=== PATIENT | female | born 1950 | race Caucasian/White ===

== ENCOUNTER 2022-01-30 09:24 | Outpatient (CLI) | payer MEDICARE, OTHER, SELFPAY ==
[2022-01-30 11:53] LABS: Chloride* 104 mmol/L (96-114); Sodium* 141 mmol/L (135-149)
[2022-01-30 11:56] LABS: Blood Urea Nitrogen* 14 mg/dL (7-30); Carbon Dioxide* 31 mmol/L (20-32); Cholesterol* 197 mg/dL (90-199); Creatinine* 0.8 mg/dL (0.5-1.5); Estimated Glomerular Filt Rate 80 ml/min; Glucose* 94 mg/dL (60-115)
[2022-01-30 11:57] LABS: Calcium* 9.7 mg/dL (8.4-10.6); HDL Cholesterol* 54 mg/dL (>=50); LDL Cholesterol Calculated 117 mg/dL (<100); Triglycerides* 131 mg/dL (40-149)
[2022-01-30 12:12] LABS: Vitamin D 25 Hydroxy* 52 ng/mL (30-80)
== END 2022-01-30 09:25 | disposition home or self-care (01) ==
PROVIDERS: PCP Family Medicine; Visit Provider Family Medicine
DX: R94.4 Abnormal results of kidney function studies (principal); E78.5 Hyperlipidemia, unspecified; M81.0 Age-related osteoporosis without current pathological fracture; Z13.1 Encounter for screening for diabetes mellitus
CPT/HCPCS: 80048; 80061; 82306

== ENCOUNTER 2022-02-06 14:21 | Outpatient (CLI) | payer MEDICARE, OTHER, SELFPAY ==
--- NOTE | 2022-02-06 14:30 | CRLHL7_ITS ---
For Patients: As a result of the Century Cures Act, medical imaging exams and procedure reports are released immediately into your electronic medical record. You may view this report before your referring provider. If you have questions, please contact your health care provider. DXA BONE MINERAL DENSITY STUDY Current height (in): 67.0 Weight (lb): 150.0 Menopause age: 57 Ethnicity: White 1. Have you had a previous hip or vertebral fracture? No. 2. Have you had any fractures during your adult life which did not result from significant trauma (e.g., auto accident)? No. 3. Did either of your parents have a hip fracture? No. 4. Do you smoke? No. 5. Have you ever taken Glucocorticoids? No. 6. Do you have rheumatoid arthritis? No. 7. Do you have secondary osteoporosis? No. 8. Do you drink 3 or more alcoholic drinks per day? No. 9. Are you being treated for osteoporosis? No. 10. Have you ever taken any of the following medications: Actonel, Evista, Fosamax, Miacalcin, Reclast, Boniva, Forteo, HRT (i.e. estrogen/hormone therapy), Protelos, Prolia, Vitamin D, Calcium, other ??? please specify. ANSWER: Yes, Vitamin D, Calcium. 11. Do you have any of the following medical conditions: Anorexia or bulimia, asthma or emphysema, end stage renal disease, hyperparathyroidism, any seizure disorders, cancer, inflammatory bowel diseases, hysterectomy, other ??? please specify. ANSWER: No. 12. What was your maximum height (inches)? 67 13. Do you perform weight bearing exercise regularly? No. 14. Do you regularly consume dairy products? No. 15. Do you drink caffeinated beverages? Yes. 16. At what age did your period start? 17 17. Are you premenopausal? No. 18. How many full term pregnancies have you had? 1 19. Have you ever missed your period for more than 6 months in a row (not including or menopause)? No. TECHNIQUE: Bone mineral density study was performed using the [employer]. FINDINGS: The results of the study expressed as bone mineral density (BMD) are as follows: Lumbar spine L1 to L4: BMD: 0.625 g/cm2. T-score: -3.8. Z-score: -1.8. Neck Left: BMD: 0.629 g/cm2. T-score: -2.0. Z-score: -0.2. Right: BMD: 0.610 g/cm2. T-score: -2.2. Z-score: -0.4. Total Left: BMD: 0.775 g/cm2. T-score: -1.4. Z-score: 0.1. Right: BMD: 0.742 g/cm2. T-score: -1.6. Z-score: -0.2. IMPRESSION: Osteoporosis. *Comparison exams done prior to 10/2019 were performed on different unit, [facility]. COMPARISON: Compared with scan of 12/12/2020, the bone mineral density has decreased by 9.2 percent at the spine and decreased by 1.6 percent at the hip. Fernando Sheppard M.D. Diagnostic Radiologist [email or web address] RILEY/dave PT/Dictated by: Fernando Sheppard MD @ 02/06/2022 3:05:00 PM (Electronically Signed)
== END 2022-02-06 14:22 | disposition home or self-care (01) ==
LOC: RAD 14:24
PROVIDERS: PCP Family Medicine; Visit Provider Family Medicine
DX: M81.0 Age-related osteoporosis without current pathological fracture (principal)
CPT/HCPCS: 77080

== ENCOUNTER 2022-03-27 09:00 | Outpatient (RCR) | payer MEDICARE, OTHER, SELFPAY ==
--- NOTE | 2022-02-04 10:36 | SLP.EVAL ---
Dr. Jaeger Please review, sign and return Thank you Sri Springer, RN FIELD CASE MANAGER RN FIELD CASE MANAGER Abdulkadir RN FIELD CASE MANAGER Abdulkadir Start: 02/03/22 12:22 Freq: Status: Active Protocol: Document 02/03/22 16:43 HJAlison (Rec: 02/03/22 16:50 HJS [id number]) E-signed By Sri Springer, MALINA, RN FIELD CASE MANAGER RN FIELD CASE MANAGER System Review History & Reason For Referral Type of Speech Evaluation Communication Evaluation Rehabilitation Order Evaluation and Treat Date of Order 01/30/22 Reason for Referral Difficulty speaking Medical Diagnosis Degenerative disease of nervous system; Treatment Diagnosis Apraxia Hearing Information Hearing Status Normal for conversation. Vision Information Vision Status Wears glasses Patient Orientation Orientation & Mental Status Within normal limits. RN FIELD CASE MANAGER Initial Assessment/POC Subjective Information Subjective/Pain Comment Patient independently ambulated to the therapy room. She is pleasant and cooperative. Assessment & Impression Assessment/Impression Patient is a 71 year old female referred for a speech evaluation and treatment for apraxia of speech. She was diagnosed last year at [facility] with degenerative disease of nervous system, with progressive apraxia of speech. She reports there has been some decline since her diagnosis. She has never had any speech therapy for this. She reports that she avoids talking because of her symptoms. She will sometimes compensate by choosing different words. She can make most sounds in isolation or at the short word level but longer utterances and conversation are very difficult for her. There are no symptoms of apraxia in her walking or other motor functions, just speech. 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 Her language and cognitive ability are intact and within normal limits. She denies any swallowing difficulty. Her speech is characterized by irregular and slow AMR's (Alternating Motion Rates), with articulation distortions and inconsistent stress and prosody. She is able to produce sounds in isolation and single syllable words but exhibits difficulty with multi syllable words, sentences and in conversation. 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 Recommend direct speech therapy to teach methods and strategies to increase intelligibility and compensate when speech not understood. Patient in agreement with plan . Functional Limitations & Outcome/Goals Goals/Functional Outcomes [facility] GOAL Patient will increase use of strategies and device as needed to decrease communication breakdowns. SHORT TERM GOALS 1)Patient will be able to utilize strategies to increase speech intelligibility 90% of the time. 2)Patient will be able to use over articulation with commonly used phrases 90% of the time. Intervention Plan & Frequency Intervention Plan direct outpatient speech therapy Frequency 1x Per Week Duration 10+ Weeks Discharge Plan Patient Will be Discharged from Therapy Completion of LTG(s),Skills Plateau,Independently Progressing Therapist Signature & License # I Certify That Therapy Services Provided, Therapy Plan Established Therapist Signature & License Number Sri Springer, [facility]-RN FIELD CASE MANAGER,# [id number] Certification Date Date of First Visit for Therapy 02/03/22 Date of Last Visit to Physician 01/30/22 Recertification Due Date 05/03/22 Physician Signature Signature of Physician Indicates Treatment Plan,Certification Plan,Medically Needed Services Physician Signature & Date Required Please Sign/Date Here Speech/Language Pathology Billing Units Billing Units Eval Speech Sound Production 1
== END 2022-12-11 23:59 | disposition home or self-care (01) ==
PROVIDERS: PCP Family Medicine; Visit Provider Family Medicine
DX: R48.2 Apraxia (principal); G31.9 Degenerative disease of nervous system, unspecified; Z51.89 Encounter for other specified aftercare
CPT/HCPCS: 92507; 92522

== ENCOUNTER 2022-04-02 09:23 | Outpatient (CLI) | payer MEDICARE, OTHER, SELFPAY ==
--- NOTE | 2022-04-02 09:15 | CRLHL7_ITS ---
For Patients: As a result of the Century Cures Act, medical imaging exams and procedure reports are released immediately into your electronic medical record. You may view this report before your referring provider. If you have questions, please contact your health care provider. BILATERAL SCREENING MAMMOGRAM WITH COMPUTER-AIDED DETECTION AND TOMOSYNTHESIS TECHNIQUE: CC and MLO views were obtained. These mammographic images have been obtained using full-field digital technique. These mammographic images were interpreted with the benefit of computer-aided detection. Breast Tomosynthesis was used in this interpretation. COMPARISON FILM: 12/12/20, 10/20/17, 05/16/14. FINDINGS: There are scattered areas of fibroglandular density IMPRESSION: There is no radiographic evidence for malignancy. ASSESSMENT: BI-RADS Category 2: Benign RECOMMENDATION: Routine screening mammogram in 1 year. A lay language report of this examination will be provided to the patient. Willian Chadwick M.D. Diagnostic/Nuclear Medicine Radiologist [email or web address] IRINEO/Dictated by: Willian Chadwick MD @ 04/03/2022 8:07:00 AM (Electronically Signed)
== END 2022-04-02 09:24 | disposition home or self-care (01) ==
PROVIDERS: PCP Family Medicine; Visit Provider Family Medicine
DX: Z12.31 Encounter for screening mammogram for malignant neoplasm of breast (principal)
CPT/HCPCS: 77063; 77067

== ENCOUNTER 2023-03-06 08:26 | Outpatient (CLI) | payer MEDICARE, OTHER, SELFPAY | END 2023-03-06 08:27 | disposition home or self-care (01) | LOC: NFLDREF 03-09 21:25 | PROVIDERS: PCP Family Medicine; Referring Provider Family Medicine; Visit Provider Family Medicine | DX: E78.5 Hyperlipidemia, unspecified (principal); M81.0 Age-related osteoporosis without current pathological fracture; R03.0 Elevated blood-pressure reading, without diagnosis of hypertension | CPT/HCPCS: 80053; 80061; 82306 ==

== ENCOUNTER 2023-04-09 14:47 | Outpatient (CLI) | payer MEDICARE, OTHER, SELFPAY ==
--- NOTE | 2023-04-09 15:00 | CRLHL7_ITS ---
For Patients: As a result of the Century Cures Act, medical imaging exams and procedure reports are released immediately into your electronic medical record. You may view this report before your referring provider. If you have questions, please contact your health care provider. BILATERAL SCREENING MAMMOGRAM WITH COMPUTER-AIDED DETECTION TECHNIQUE: CC and MLO views were obtained. These mammographic images have been obtained using full-field digital technique. These mammographic images were interpreted with the benefit of computer-aided detection. COMPARISON FILM: 04/02/22, 12/12/20, 10/20/17 FINDINGS: There are scattered areas of fibroglandular density. IMPRESSION: There is no radiographic evidence for malignancy. ASSESSMENT: BI-RADS Category 1: Negative RECOMMENDATION: Routine screening mammogram in 1 year. A lay language report of this examination will be provided to the patient. FERNANDO AMIN M.D. Diagnostic Radiologist [email or web address] RILEY/mohit Transcribed: 04/10/2023, 2:[address]/Dictated by: Fernando Amin MD @ 04/10/2023 9:25:00 AM (Electronically Signed)
== END 2023-04-09 14:48 | disposition home or self-care (01) ==
LOC: MAMMO 14:48
PROVIDERS: PCP Family Medicine; Visit Provider Family Medicine
DX: Z12.31 Encounter for screening mammogram for malignant neoplasm of breast (principal)
CPT/HCPCS: 77067

== ENCOUNTER 2024-03-03 08:30 | Outpatient (CLI) | payer MEDICARE, OTHER, SELFPAY | END 2024-03-03 08:31 | disposition home or self-care (01) | LOC: NFLDREF 03-04 11:37 | PROVIDERS: PCP Family Medicine; Referring Provider Family Medicine; Visit Provider Family Medicine | DX: E78.5 Hyperlipidemia, unspecified (principal); R03.0 Elevated blood-pressure reading, without diagnosis of hypertension; M81.0 Age-related osteoporosis without current pathological fracture | CPT/HCPCS: 80053; 80061; 82306 ==

== ENCOUNTER 2024-06-15 08:53 | Outpatient (CLI) | payer MEDICARE, SELFPAY ==
--- NOTE | 2024-06-15 09:00 | CRLHL7_ITS ---
For Patients: As a result of the Century Cures Act, medical imaging exams and procedure reports are released immediately into your electronic medical record. You may view this report before your referring provider. If you have questions, please contact your health care provider. XR DXA BONE MINERAL DENSITY (BMD) Current height (in): 67.0. Weight (lb): 140.0. Menopause age: 57. Ethnicity: White. Reason for exam: Osteoporosis. 1. Have you had a previous hip or vertebral fracture? No. 2. Have you had any fractures during your adult life which did not result from significant trauma (e.g., auto accident)? No. 3. Did either of your parents have a hip fracture? No. 4. Do you smoke? No. 5. Have you ever taken Glucocorticoids? No. 6. Do you have rheumatoid arthritis? No. 7. Do you have secondary osteoporosis? No. 8. Do you drink 3 or more alcoholic drinks per day? No. 9. Are you being treated for osteoporosis? Yes. 10. Have you ever taken any of the following medications: Actonel, Evista, Fosamax, Miacalcin, Reclast, Boniva, Forteo, HRT (i.e. estrogen/hormone therapy), Protelos, Prolia, Vitamin D, Calcium, other ??? please specify. ANSWER: Yes, Fosamax, vitamin D, calcium. 11. Do you have any of the following medical conditions: Anorexia or bulimia, asthma or emphysema, end stage renal disease, hyperparathyroidism, any seizure disorders, cancer, inflammatory bowel diseases, hysterectomy, other ??? please specify. ANSWER: No. 12. What was your maximum height (inches)? 67. 13. Do you perform weight bearing exercise regularly? Yes. 14. Do you regularly consume dairy products? Yes. 15. Do you drink caffeinated beverages? Yes. 16. At what age did your period start? 17. 17. Are you premenopausal? No. 18. How many full-term pregnancies have you had? 1. 19. Have you ever missed your period for more than 6 months in a row (not including or menopause)? No. TECHNIQUE: Bone mineral density study was performed using the [employer]. FINDINGS: The results of the study expressed as bone mineral density (BMD) are as follows: Lumbar spine L1 to L4: BMD: 0.701 g/cm2. T-score: -3.1. Z-score: -1.0 Neck Left: BMD: 0.630 g/cm2. T-score: -2.0. Z-score: -0.1 Right: BMD: 0.592 g/cm2. T-score: -2.3. Z-score: -0.4 Total Left: BMD: 0.816 g/cm2. T-score: -1.0. Z-score: 0.6 Right: BMD: 0.795 g/cm2. T-score: -1.2. Z-score: 0.4 IMPRESSION: Osteoporosis. *Comparison exams done prior to 10/2019 were performed on different unit, [facility]. COMPARISON: Compared with scan of 02/06/2022, the bone mineral density has increased by 12.1 percent at the spine and increased by 6.2 percent at the hip. Marcelle Moran M.D. Diagnostic/Breast Radiologist [email or web address] Transcribed: 12:59 pm DW/Dictated by: Marcelle Moran MD @ 06/15/2024 11:03:00 AM (Electronically Signed)
== END 2024-06-15 08:54 | disposition home or self-care (01) ==
LOC: RAD 08:55
PROVIDERS: PCP Family Medicine; Visit Provider Family Medicine
DX: M81.0 Age-related osteoporosis without current pathological fracture (principal)
CPT/HCPCS: 77080

== ENCOUNTER 2025-03-06 08:05 | Outpatient (CLI) | payer MEDICARE, OTHER, SELFPAY | END 2025-03-06 08:06 | disposition home or self-care (01) | LOC: NFLDREF 03-19 11:59 | PROVIDERS: PCP Family Medicine; Referring Provider Family Medicine; Visit Provider Family Medicine | DX: M81.0 Age-related osteoporosis without current pathological fracture (principal); E78.5 Hyperlipidemia, unspecified; G31.9 Degenerative disease of nervous system, unspecified; K08.89 Other specified disorders of teeth and supporting structures; R48.2 Apraxia | CPT/HCPCS: 80053; 80061; 82306 ==